=== PATIENT | male | born 1995 | race Two or more races ===

== ENCOUNTER 2021-01-09 06:05 | Emergency (ER) | payer MEDICAID, SELFPAY ==
[2021-01-09 06:03] VITALS: BP 118/74; PULSE 109; RESP 12; TEMP 36.9; O2SAT 95
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
[2021-01-09 06:14] LABS: Glucose Point of Care 100 mg/dl (65-105)
[2021-01-09 06:26] LABS: Basophils Percent Auto 0.3 % (0.2-1.2); Eosinophils Absolute Auto 0.1 K/mm3 (0-0.3); Eosinophils Percent Auto 0.9 % (0-4.4); Hematocrit 42.7 % (42.0-52.0); Hemoglobin 14.3 g/dL (14.0-18.0); Immature Granulocyte Absolute 0.06 K/mm3 (0.00-0.031); Immature Granulocyte Percent A 0.8 % (0-0.5); Lymphocytes Absolute Auto 1.77 K/mm3 (0.9-3.2); Lymphocytes Percent Auto 22.9 % (18.3-44.2); Mean Corpuscular HGB Conc 33.5 g/dl (32-36); Mean Corpuscular Hemoglobin 30.6 pg (26-34); Mean Corpuscular Volume 91.2 fl (80-100); Mean Platelet Volume 8.6 fl (7.4-10.4); Monocytes Absolute Auto 0.5 K/mm3 (0.1-0.6); Monocytes Percent Auto 6.2 % (2.6-8.5); Neutrophils Absolute Auto 5.3 K/mm3 (1.3-6.7); Neutrophils Percent Auto 68.9 % (45.5-73.1); Platelet Count Result 240 k/mm3 (150-375); Red Blood Count 4.68 M/mm3 (4.6-6.20); Red Cell Distribution Width 13.1 % (11.5-14.5); White Blood Count 7.7 K/mm3 (4.5-10.0)
--- NOTE | 2021-01-09 06:32 | PC.NURSE ---
attempted to obtain urine. Pt denies the need to urinate. will attempt again soon.
[2021-01-09 06:35] LABS: Anion Gap 19 mmol/L (8-16); Blood Urea Nitrogen 6 mg/dL (9-20); Calcium 8.8 mg/dL (8.4-10.2); Carbon Dioxide 18 mmol/L (22-30); Chloride 109 mmol/L (98-107); Estimated Glomerular Filt Rate > 60; Glucose 97 mg/dL (75-110); Potassium 3.6 mmol/L (3.4-5.0); Sodium 146 mmol/L (137-145)
[2021-01-09 06:36] LABS: Ethanol 226 mg/dL (<10)
[2021-01-09 07:14] VITALS: BP 101/57; PULSE 90; RESP 19; O2SAT 95
--- NOTE | 2021-01-09 07:14 | PC.NURSE ---
Pt resting at this time, equal chest rise and fall. VSS, on tele monitor. Discussed straight cath for urine due to unable to void.
[2021-01-09 07:48] LABS: Amphetamine Screen Urine Negative (Negative); Barbiturate Screen Urine Negative (Negative); Benzodiazepines Screen Urine Negative (Negative); Cannabinoid Screen Urine Positive (Negative); Cocaine Screen Urine Negative (Negative); Methadone Screen Urine Negative (Negative); Opiate Screen Urine Negative (Negative); Phencyclidine Screen Urine Negative (Negative)
--- NOTE | 2021-01-09 08:11 | PC.NURSE ---
Pt resting, on tele monitor w/ equal chest rise and fall, VSS. PD at bedside.
[2021-01-09 08:12] VITALS: BP 104/71; PULSE 82; RESP 16; O2SAT 95
[2021-01-09 09:16] VITALS: BP 103/67; PULSE 76; RESP 17; O2SAT 96
[2021-01-09 10:20] VITALS: BP 113/93; PULSE 70; RESP 14; O2SAT 98
--- NOTE | 2021-01-09 11:07 | PC.NURSE ---
Bedside report given to Nigel SIMON at this time.
--- NOTE | 2021-01-09 11:19 | PC.NURSE ---
Patient awake and alert at this time. Able to ambulate to bathroom with no difficulty. EDP Kp aware.
[2021-01-09 11:23] VITALS: RESP 18
== END 2021-01-09 11:24 ==
PROVIDERS: Emergency Provider Emergency Medicine
DX: S61.212A Laceration without foreign body of right middle finger without damage to nail, initial encounter (principal); F10.129 Alcohol abuse with intoxication, unspecified; Y90.7 Blood alcohol level of 200-239 mg/100 ml; X99.1XXA Assault by knife, initial encounter
CPT/HCPCS: 36415; 51701; 80048; 80307; 82948; 85025; 99283